=== PATIENT | male | born 1945 | race Caucasian/White ===

== ENCOUNTER → 2016-07-19 | Outpatient (REF) ==
[2016-07-19 11:58] LABS: ANION GAP 15.2 MEQ/L (3-15)
== END ==
LOC: CLAB.BLUES 11:30
PROVIDERS: ATTEND Family Medicine
DX: I10 Essential (primary) hypertension (principal)
CPT/HCPCS: 80048

== ENCOUNTER → 2016-10-27 | Outpatient (REF) | LOC: CLAB.BLUES 15:28 | PROVIDERS: ATTEND Family Medicine | DX: E11.9 Type 2 diabetes mellitus without complications (principal) | CPT/HCPCS: 82043; 83036 ==

== ENCOUNTER → 2016-11-01 | Outpatient (REF) ==
[2016-11-01 13:20] LABS: ALBUMIN 3.7 g/dL (3.4-5.0); ANION GAP 15.6 MEQ/L (3-15); CALCULATED IONIZED CALCIUM 4.2 mg/dL (3.8-4.6); TOTAL PROTEIN 6.4 g/dL (6.4-8.5)
== END ==
LOC: CLAB.BLUES 11:14
PROVIDERS: ATTEND Family Medicine
DX: E11.9 Type 2 diabetes mellitus without complications (principal)
CPT/HCPCS: 80053; 80061